=== PATIENT | male | born 1990 | race African-American/Black ===

== ENCOUNTER 2017-03-28 11:11 | Emergency (ER) | payer BC, OTHER ==
[~2017-03-28] VITALS: Ht 182.9 cm; Wt 83.9 kg
[2017-03-28 11:30] VITALS: BP 114/69
[2017-03-28 12:10] VITALS: BP 114/69
[2017-03-28] MEDS ORDERED: IBUPROFEN600 MG ORAL (12:19)
--- NOTE | 2017-03-28 12:45 | Diagnostic Imaging Report ---
Indications: PAIN left knee pain Technique: Three views of the knee Comparison: None Findings: No acute fractures. No dislocations. Joint spaces are preserved. No radiopaque foreign body. Normal mineralization. Tiny superior pole patellar traction osteophyte noted Impression: No acute process
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
== END 2017-03-28 12:23 | disposition home or self-care (01) ==
LOC: EMR 11:48
DX: S83.92XA Sprain of unspecified site of left knee, initial encounter (principal); V09.3XXA Pedestrian injured in unspecified traffic accident, initial encounter; Y93.02 Activity, running; Y92.410 Unspecified street and highway as the place of occurrence of the external cause
CPT/HCPCS: 99283